=== PATIENT | female | born 1990 | race Caucasian/White ===

== ENCOUNTER → 2016-11-28 | Day surgery (SDC) | payer BC ==
[2016-11-12 13:01] LABS: HEMATOCRIT 38.9 % (37-47); MEAN CELL VOLUME 88.4 fL (80-100); MEAN CORPUSCULAR HEMOGLOBIN 30.9 pg (25-34); MEAN PLATELET VOLUME 10.9 fL (7.4-10.4); PLATELET COUNT 301 K/uL (130-400); WHITE BLOOD COUNT 3.56 K/uL (4.8-10.8)
[2016-11-12 13:16] LABS: PROTHROMBIN TIME (PATIENT) 11.2 SECONDS (9.0-12.0)
[2016-11-17 09:02] VITALS: Ht 172.7 cm; Wt 73.6 kg
[~2016-11-28] VITALS: Ht 172.7 cm; Wt 73.6 kg
[~2016-11-28] MED LIST: ATROPINE SULFATE 0.1 MG/ML 5ML SYR IV PRN; BUPIVACAINE 0.5 % 5 MG/1 ML MPF 30ML VIAL ONE; CEFAZOLIN 1000MG/55 ML D5W IV SCH; DEXAMETHASONE SOD INJ 4 MG/ML VIAL ONE; EpHEDrine SULFATE INJ 50 MG/ML AMP IV PRN; FENTANYL CITRATE INJ 50 MCG/1 ML 2 ML VIAL ONE; FLUMAZENIL 0.1 MG/1 ML 10 ML VIAL IV PRN; HYDROCODONE/ACETAMOPHEN 5/325MG TAB PO PRN; LACTATED RINGER'S 1000ML 1,000 ML IV SCH; LIDOCAINE HCL 1% 20 ML VIAL ONE; LIDOCAINE HCL 2% 2 ML VIAL (20MG/ML) ONE; METOCLOPRAMIDE HCL INJ 5 MG/ML 2 ML VIAL IV PRN; MIDAZOLAM HCL 1 MG/ML 2ML VIAL ONE; NALOXONE HCL 0.4 MG/1 ML VIAL/CARP IV PRN; ONDANSETRON INJ 2 MG/ML 2 ML VIAL IV PRN; ONDANSETRON INJ 2 MG/ML 2 ML VIAL ONE; OXYCODONE/ACETAMINOPHEN 5-325 TAB PO PRN; PROMETHAZINE HCL INJ 12.5 MG in SODIUM CHLORIDE 0.9% 50ML 50 ML IV PRN; PROPOFOL IV EMULSION 10 MG/ML 20 ML VIAL IV ONE; SODIUM CHLORIDE 0.9% 1000ML 1,000 ML IV SCH; [UNRECOGNIZED DRUG - REMARK] PO
--- NOTE | 2016-11-28 06:50 | History & Physical Bridge - [place] ---
H&P Re-Evaluation Bridge Note: I have examined the patient, reviewed the History & Physical and in the interval since the performance of the History & Physical I have noted the following changes of clinical significance: No changes noted
[2016-11-28 09:01] VITALS: TEMP 36.3
--- NOTE | 2016-11-28 09:40 | Discharge Instructions-SurgCtr ---
Discharge Instructions Date of Service Nov 28, 2016. Visit Reason for Visit: Hallux Valgus, Pain Left Foot;Pre Op Discharge Discharge Diagnosis / Problem: left hallux rigidus Discharge Goals Goal(s): Decrease discomfort, Improve function Activity Recommendations Activity Limitations: per Instructions/Follow-up section (non weightbearing left foot) Lifting Limitations: no more than 5 pounds Exercise/Sports Limitations: none May Resume Sexual Activity: after two weeks Shower/Bathe: keep incision dry Driving or Machine Use: no driving Weightbearing Status: Left non-weightbearing Anesthesia . Post Anesthesia Instructions: If you have had General Anesthesia or IV Sedation: * Do not drive today. * Resume driving when surgeon permits. * Do not make important decisions or sign legal documents today. * Call surgeon for: 1. Temperature elevations greater than 101 degrees F. 2. Uncontrollable pain. 3. Excessive bleeding. 4. Persistent nausea and vomiting. 5. Medication intolerance (nausea, vomiting or rash). * For nausea and vomiting use only clear liquids such as: tea, soda, bouillon until nausea subsides, then gradually increase diet as tolerated. * If you have any concerns or questions, call your surgeon's office. If physician is unavailable and it is an emergency, call 911 or go to the nearest emergency room. . Diet Recommendations Home Diet: no limitations Fluid Restriction: None Procedures Procedures Performed: Left Foot Surgical Correction Bunion Deformity Pending Studies Studies pending at discharge: no Medical Emergencies . Who to Call and When: Medical Emergencies: If at any time you feel your situation is an emergency, please call 911 immediately. . Non-Emergent Contact Non-Emergency issues call your: Primary Care Provider Call Non-Emergent contact if: temperature is above 101.5 . . "Provider Documentation" section prepared by Jennifer Mirza. [place] Drug Monitoring Program Drug Monitoring Findings: Call [phone]
--- NOTE | 2016-11-28 09:41 | [facility] Post Operative Brief Note ---
Immediate Operative Summary Operative Date Nov 28, 2016. Pre-Operative Diagnosis Left Foot Pain, Hallux Valgus Post-Operative Diagnosis Same Procedure(s) Performed Left Foot Surgical Correction Bunion Deformity Surgeon Dr Danielson Client Care Specialist Surgeon(s) None Estimated Blood Loss 0ML Findings bone left foot Specimens A: Left Foot Bone Drains none Anesthesia mac with local Complication(s) None Disposition Recovery Room / PACU
--- NOTE | 2016-11-28 09:43 | Anesthesia Progress Nt - [facility] ---
Anesthesia Post Op Note Date & Time Nov 28, 2016 at 09:41 Vital Signs Pain Intensity: 1 Vital Signs Past 12 Hours Date Time Temp Pulse Resp B/P Pulse Ox O2 Delivery O2 Flow Rate FiO2 11/28/16 09:14 59 20 101/63 100 Room Air 11/28/16 09:01 36.3 68 16 96/57 97 Room Air 11/28/16 06:30 36.7 86 16 111/58 99 Room Air Notes Mental Status: alert / awake / arousable, participated in evaluation Pt Amnestic to Procedure: Yes Nausea / Vomiting: adequately controlled Pain: adequately controlled Airway Patency, RR, SpO2: stable & adequate BP & HR: stable & adequate Hydration State: stable & adequate Anesthetic Complications: no major complications apparent
[2016-11-28 09:48] VITALS: BP 101/68; PULSE 55; O2SAT 100
--- NOTE | 2016-11-28 11:44 | OPERATIVE REPORT ---
DATE OF OPERATION: 11/28/2016 PREOPERATIVE DIAGNOSIS: Painful left foot hallux rigidus/bunion/arthritis. POSTOPERATIVE DIAGNOSIS: Same. PROCEDURES: Left foot bunion correction or decompression osteotomy with fixation. SURGEON: Jennifer Danielson DPM. BLOOD LOSS: 1 mL. HEMOSTASIS: Pneumatic ankle tourniquet at 250 mmHg. ANESTHESIA: Local IV sedation. DESCRIPTION OF PROCEDURE: The patient was brought to the operating room and placed in the supine position. The left lower extremity was prepped and draped in the usual sterile manner. A 1:1 mix of 1% lidocaine plain and 0.5% Marcaine was utilized to anesthetize the left foot at the first metatarsophalangeal joint. At this point, a timeout was taken, anesthesia was induced and the procedure began. A dorsal linear incision was made just medial to the long extensor tendon. Dissection was carried through the skin and subcutaneous tissues to the level of the joint capsule. At this point, the joint capsule was then incised in line with the original incision and dissected both medially and laterally to expose the joint. At this point, there was a moderate amount of dorsal exostosis present at the first metatarsal head as well as medial eminence or medial exostosis present. Both of these were removed utilizing the sagittal saw and passed off the table and sent to pathology for permanent specimen. Next, the decompression osteotomy was performed. The plantar cut was made first followed by the dorsal cut in which a small about 1 mm portion of bone was removed and this was removed to allow the distal fragment to both plantarflex and to allow more joint space, which was part of the issue and this patient's problem which was her having her hallux rigidus and not being able to fully dorsiflex her toe with ambulation. So at this point, the small portion of bone was removed from the dorsal aspect of the first metatarsal and passed off the table and sent to pathology for permanent specimen. The distal capital fragment was then translocated laterally to realign the joint. A K-wire was placed from proximal to distal across the osteotomy and position checked with intraoperative fluoroscopy and found to be appropriate. Next, a 3.0 x 20 mm cannulated Arthrex screw was applied across the osteotomy and again position checked with intraoperative fluoroscopy and found to be appropriate. The toe was taken through range of motion and much improvement in the dorsiflexion was noted with removal of the dorsal exostosis and the osteotomy performed. The area was flushed with copious amounts of normal saline and the K-wire that acted as cannulated fixation was removed. The screw was tightened down to the bone and remained flush in place. This was tightened to 2 finger tightness. Again, the area was flushed with copious amounts of normal saline. At this point, any remaining redundant bone was burred utilizing the bur and making sure all areas were flush and appropriate for joint motion and ambulation. Next, the area was flushed again. The capsular tissues were closed with 3-0 Vicryl. The subcutaneous tissues were closed with 3-0 Vicryl and the skin was closed with 3-0 nylon in a combination of horizontal mattress and simple interrupted sutures. At this point, compressive and corrective dressings were applied. The tourniquet was deflated. A posterior splint was applied. The patient was taken to recovery room with all vital signs stable and intact. She will follow up with me in the office in 1 week. She was made aware of all risks and benefits of the procedure and she did sign consent for the procedure. She did try conservative treatments including injections, wider shoes and orthotics which at first somewhat improved it but however the pain would return and the patient continued to have inability to wear shoe gear and that is why she opted for surgical correction at this time. I attest to the content of the Intraoperative Record and any orders documented therein. Any exceptions are noted below. BRENDAN
--- NOTE | 2016-12-01 07:31 | DIAGNOSTIC IMAGING REPORT ---
INTRAOPERATIVE RADIOGRAPHS CLINICAL HISTORY: Hallux valgus repair. Fluoroscopy time: 16 seconds. FINDINGS: 2 spot fluoroscopic views of the left forefoot are presented. There is evidence of osteotomy involving the distal first metatarsal with a cortical lag screw in place. Near-anatomic alignment is preserved at the first metatarsophalangeal joint. Mild overlying soft tissue edema is noted. IMPRESSION: Intraoperative images from left bunionectomy as above. Electronically signed by: Nate Fish M.D. 11/28/2016 9:55 AM Dictated Date/Time: 11/28/2016 9:54 AM
== END | disposition home or self-care (01) ==
LOC: X.SURG 06:13
PROVIDERS: ATTEND Podiatrist
DX: M20.12 Hallux valgus (acquired), left foot (principal); M20.21 Hallux rigidus, right foot; E66.3 Overweight; Z82.49 Family history of ischemic heart disease and other diseases of the circulatory system

== ENCOUNTER → 2017-01-19 | Outpatient (CLI) | payer BC ==
[~2017-01-19] MED LIST changes: -ATROPINE SULFATE 0.1 MG/ML 5ML SYR IV PRN; -BUPIVACAINE 0.5 % 5 MG/1 ML MPF 30ML VIAL ONE; -CEFAZOLIN 1000MG/55 ML D5W IV SCH; -DEXAMETHASONE SOD INJ 4 MG/ML VIAL ONE; -EpHEDrine SULFATE INJ 50 MG/ML AMP IV PRN; -FENTANYL CITRATE INJ 50 MCG/1 ML 2 ML VIAL ONE; -FLUMAZENIL 0.1 MG/1 ML 10 ML VIAL IV PRN; -HYDROCODONE/ACETAMOPHEN 5/325MG TAB PO PRN; -LACTATED RINGER'S 1000ML 1,000 ML IV SCH; -LIDOCAINE HCL 1% 20 ML VIAL ONE; -LIDOCAINE HCL 2% 2 ML VIAL (20MG/ML) ONE; -METOCLOPRAMIDE HCL INJ 5 MG/ML 2 ML VIAL IV PRN; -MIDAZOLAM HCL 1 MG/ML 2ML VIAL ONE; -NALOXONE HCL 0.4 MG/1 ML VIAL/CARP IV PRN; -ONDANSETRON INJ 2 MG/ML 2 ML VIAL IV PRN; -ONDANSETRON INJ 2 MG/ML 2 ML VIAL ONE; -OXYCODONE/ACETAMINOPHEN 5-325 TAB PO PRN; -PROMETHAZINE HCL INJ 12.5 MG in SODIUM CHLORIDE 0.9% 50ML 50 ML IV PRN; -PROPOFOL IV EMULSION 10 MG/ML 20 ML VIAL IV ONE; -SODIUM CHLORIDE 0.9% 1000ML 1,000 ML IV SCH
== END | disposition home or self-care (01) ==
LOC: C.LABSPEC 15:10
PROVIDERS: ATTEND Podiatrist
DX: Z48.89 Encounter for other specified surgical aftercare (principal)

== ENCOUNTER → 2017-01-30 | Outpatient (CLI) | payer BC ==
[2017-01-30 19:23] LABS: THYROID STIMULATING HORMONE 2.1 uIu/ml (0.300-4.500)
== END | disposition home or self-care (01) ==
LOC: C.LAB 17:09
PROVIDERS: ATTEND Physician Assistant
DX: R79.89 Other specified abnormal findings of blood chemistry (principal)

== ENCOUNTER → 2017-02-02 | Outpatient (CLI) | payer BC | END | disposition home or self-care (01) | LOC: C.PAPS 14:09 | PROVIDERS: ATTEND Obstetrics & Gynecology | DX: Z01.419 Encounter for gynecological examination (general) (routine) without abnormal findings (principal) ==

== ENCOUNTER → 2017-03-23 | Outpatient (CLI) | payer BC ==
--- NOTE | 2017-03-23 12:09 | DIAGNOSTIC IMAGING REPORT ---
THYROID ULTRASOUND CLINICAL HISTORY: Thyroid antibody positive. Thyroid nodule. COMPARISON STUDY: Thyroid ultrasound May 01, 2016. TECHNIQUE: Sonography of the thyroid gland was performed. FINDINGS: The right thyroid lobe measures 5.3 x 2 x 1.6 cm and the left lobe measures 5.2 x 1.5 x 1.8 cm. Gland heterogeneity has likely increased exam of May 01, 2016. A few prominent central compartment lymph nodes are noted, including a 1.1 x 1.4 x 0.6 cm lymph node inferior to the right thyroid lobe. This was shown on prior exam. A 0.9 x 0.6 x 0.7 cm hypoechoic left lobe thyroid nodule is similar to exam of May 01, 2016 when allowing for measurement variability. IMPRESSION: 1. Mildly enlarged, heterogeneous thyroid gland. Gland heterogeneity has increased since exam of July 01, 2016. A few paracentral compartment lymph nodes. The findings suggest chronic thyroiditis. 2. 0.9 cm left lobe thyroid nodule which is either stable or minimally increased in size since exam of May 01, 2016. This does not meet criteria for biopsy. A follow-up ultrasound in one year is recommended. Electronically signed by: Jose Antonio Rodriguez M.D. 03/23/2017 12:08 PM Dictated Date/Time: 03/23/2017 12:04 PM
== END | disposition home or self-care (01) ==
LOC: C.ULTR 11:00
PROVIDERS: ATTEND Physician Assistant
DX: R94.6 Abnormal results of thyroid function studies (principal); R76.0 Raised antibody titer; E04.1 Nontoxic single thyroid nodule

== ENCOUNTER → 2017-04-21 | Outpatient (CLI) | payer BC ==
[2017-04-21 19:00] LABS: THYROID STIMULATING HORMONE 2.3 uIu/ml (0.300-4.500)
== END | disposition home or self-care (01) ==
LOC: C.LAB 18:12
PROVIDERS: ATTEND Physician Assistant
DX: R79.89 Other specified abnormal findings of blood chemistry (principal); R76.0 Raised antibody titer; R94.6 Abnormal results of thyroid function studies

== ENCOUNTER → 2017-04-29 | Outpatient (CLI) | payer BC | END | disposition home or self-care (01) | LOC: C.LAB1850 10:17 | PROVIDERS: ATTEND Physician Assistant | DX: E66.3 Overweight (principal) ==

== ENCOUNTER → 2017-07-06 | Outpatient (CLI) | payer BC ==
[2017-07-06 12:17] LABS: BASO % 0.2 %; BASO ABS # 0.01 K/uL (0-0.2); COMPLETE YES; EOS % 0.9 %; HEMATOCRIT 37.6 % (37-47); IG% 0.2 %; LYMPH % 29.6 %; LYMPH ABS # 1.29 K/uL (1.2-3.4); MEAN CELL VOLUME 89.5 fL (80-100); MEAN CORPUSCULAR HEMOGLOBIN 30.7 pg (25-34); MEAN CORPUSCULAR HGB CONC 34.3 g/dl (32-36); MEAN PLATELET VOLUME 11.3 fL (7.4-10.4); MONO % 6.9 %; NEUT % 62.2 %; PLATELET COUNT 265 K/uL (130-400); WHITE BLOOD COUNT 4.36 K/uL (4.8-10.8)
[2017-07-06 12:30] LABS: THYROID STIMULATING HORMONE 0.778 uIu/ml (0.300-4.500)
[2017-07-06 15:00] LABS: URINE APPEARANCE CLEAR (CLEAR); URINE BILIRUBIN NEG (NEG); URINE COLOR YELLOW; URINE NITRITE NEG (NEG); URINE PH 6.5 (4.5-7.5); URINE SPECIFIC GRAVITY 1.016 (1.000-1.030); UROBILINOGEN NEG (NEG)
[2017-07-06 15:09] LABS: MANUAL MICROSCOPIC REQUIRED? NO; REVIEW REQ? NO
[2017-07-09 01:47] LABS: CHLAMYDIA TRACH RNA*** NOT DETECTED (NOT DETECTED); GC (NEIS GONORRHOEAE)RNA** NOT DETECTED (NOT DETECTED)
== END | disposition home or self-care (01) ==
LOC: C.LAB1850 10:27
PROVIDERS: ATTEND Obstetrics & Gynecology
DX: O99.281 Endocrine, nutritional and metabolic diseases complicating pregnancy, first trimester (principal); R94.6 Abnormal results of thyroid function studies

== ENCOUNTER → 2017-08-12 | Outpatient (CLI) | payer BC | END | disposition home or self-care (01) | LOC: C.PATHSPEC 10:20 | PROVIDERS: ATTEND Plastic Surgery | DX: K13.0 Diseases of lips (principal); D23.0 Other benign neoplasm of skin of lip; R23.4 Changes in skin texture ==

== ENCOUNTER → 2017-08-18 | Outpatient (CLI) | payer BC ==
[2017-08-18 18:00] LABS: GTGD 50 Grams
== END | disposition home or self-care (01) ==
LOC: C.LAB 14:22
PROVIDERS: ATTEND Obstetrics & Gynecology
DX: Z34.82 Encounter for supervision of other normal pregnancy, second trimester (principal)

== ENCOUNTER → 2017-09-16 | Outpatient (CLI) | payer BC ==
[~2017-09-16] MED LIST changes: +LEVO75TA PO; +PRENTAB26 PO
== END | disposition home or self-care (01) ==
LOC: C.LAB1850 16:41
PROVIDERS: ATTEND Physician Assistant
DX: R94.6 Abnormal results of thyroid function studies (principal)

== ENCOUNTER → 2017-11-09 | Outpatient (CLI) | payer BC ==
[~2017-11-09] MED LIST changes: -LEVO75TA PO; -PRENTAB26 PO
[2017-11-09 11:59] LABS: HEMATOCRIT 31.9 % (37-47); HEMOGLOBIN 10.6 g/dL (12.0-16.0)
== END | disposition home or self-care (01) ==
LOC: C.LAB 11:22
PROVIDERS: ATTEND Obstetrics & Gynecology
DX: Z34.83 Encounter for supervision of other normal pregnancy, third trimester (principal)

== ENCOUNTER → 2017-11-27 | Outpatient (CLI) | payer BC, OTHER | END | disposition home or self-care (01) | LOC: C.LAB1850 10:53 | PROVIDERS: ATTEND Physician Assistant | DX: O99.283 Endocrine, nutritional and metabolic diseases complicating pregnancy, third trimester (principal); E03.9 Hypothyroidism, unspecified; Z3A.00 Weeks of gestation of pregnancy not specified ==

== ENCOUNTER → 2018-01-07 | Outpatient (CLI) | payer OTHER | END | disposition home or self-care (01) | LOC: C.LABSPEC 15:53 | PROVIDERS: ATTEND Obstetrics & Gynecology | DX: Z34.83 Encounter for supervision of other normal pregnancy, third trimester (principal) ==

== ENCOUNTER 2022-09-05 02:00 | Inpatient (IN) ==
[2022-09-05] MEDS ORDERED: LIDOCAINE 1% LOCAL 20 ML VIAL INFIL PRN (02:14)
[2022-09-05] MEDS ORDERED: OXYTOCIN 30 UNITS/500 ML BAG IV PRN ×2 (02:14→07:33)
[2022-09-05 02:47] LABS: Hematocrit (blood only) 34.6 % (34.1-44.9); Hemoglobin 11.8 g/dl (12.0-16.0); Mean Corpuscular Hemoglobin 30.7 pg (25.0-34.0); Mean Corpuscular Hgb Conc 34.1 g/dL (32.0-36.0); Mean Corpuscular Volume 90.1 fL (80.0-100.0); Mean Platelet Volume 10.3 fL (9.4-12.3); Platelet Count 298 K/uL (130-400); RDW Coefficient of Variation 13.4 % (11.5-14.5); RDW Standard Deviation 43.8 fL (36.4-46.3); Red Blood Count 3.84 M/uL (3.93-5.22); White Blood Count 7.12 K/ul (4.8-10.8)
[2022-09-05] MEDS: LACTATED RINGER'S 1,000 ML IV PRN ×2 (02:50→05:57)
[2022-09-05] MEDS ORDERED: SODIUM CHLORIDE 0.9% INJ 10 ML VIAL ONE (02:53)
[2022-09-05] MEDS ORDERED: ePHEDrine sulfate 50 MG/ML AMP ONE (02:53)
[2022-09-05] MEDS ORDERED: fentaNYL citrate 100 MCG/2 ML VIAL ONE (02:53)
[2022-09-05] MEDS ORDERED: BUPIVACAINE 0.25% 30 ML VIAL ONE (02:53)
[2022-09-05] MEDS ORDERED: LIDOCAINE 2%/EPINEPHRINE 1:200,000 20 ML SDV ONE (02:53)
[2022-09-05] MEDS ORDERED: fentaNYL 2MCG/ML ROPIVACAINE 1.25MG/ML 100 ML BAG EPI ONE (02:54)
--- NOTE | 2022-09-05 03:39 | Anesthesiology Consultation ---
Date of Service September 05, 2022 Assessment & Plan Chart Review Chart Review: Acceptable Risk for Labor Epidural Consults Requested none History Height/Weight Height: 5 ft 8 in Weight: 101.151 kg Allergies Allergy/AdvReac Type Severity Reaction Status Date / Time benzoin Allergy Unknown RASH Verified 09/02/22 11:32 minocycline Allergy Unknown GI UPSET Verified 09/02/22 11:32 AND METAL TASTE IN MOUTH Medications Home Medications Medication Instructions Recorded Confirmed Last Taken prenat.vits,reema,ndk-qjca-ulbng 1 tab PO DAILY 01/20/22 09/05/22 Unknown breast pump #1 ea 06/19/22 09/02/22 Unknown levothyroxine 112 mcg tablet 112 mcg PO .8xweek 90 days #96 tabs 08/14/22 09/05/22 Unknown Active Medications Generic Name Dose Route Start Last Admin Trade Name Freq PRN Reason Stop Dose Admin Lactated Ringer's 1,000 mls @ 125 mls/hr 09/05/22 02:14 09/05/22 03:29 Lr IV 09/07/22 02:13 125 mls/hr .Q8H PRN Infusion L&D Protocol Protocol Past Medical History Medical History (Updated 03/24/22 @ 12:24 by Kalyani Green) Chronic tonsillitis History of positive PPD 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 Obesity thyroiditis Varicella vaccination Past Family History Family History Grandmother (Maternal) Breast cancer Mother Endometriosis Father Hypertension Diabetes Heart disease Grandfather (Paternal) Diabetes Denies family history of Ovarian cancer Prostate cancer Myocardial infarction Lung cancer Colorectal cancer Stroke Past Surgical History Surgical History H/O oral surgery S/P bunionectomy Social History Smoking Status: Never smoker Hx Alcohol Use: No Hx Substance Use: No Physical Exam Vital Signs Last Vital Signs Temp 36.6 C 09/05/22 02:17 Pulse 90 09/05/22 03:35 Resp 18 09/05/22 02:17 BP 118/61 09/05/22 03:35 Pulse Ox 98 09/05/22 03:33 Testing Laboratory Results 09/05/22 02:37
[2022-09-05] MEDS ORDERED: diphenhydrAMINE 50 MG/ML VIAL IV PRN (03:40)
[2022-09-05] MEDS ORDERED: NALBUPHINE HCL INJ 10 MG/ML AMP IV PRN (03:40)
[2022-09-05] MEDS ORDERED: fentaNYL 2MCG/ML ROPIVACAINE 1.25MG/ML 100 ML BAG EPI PRN (03:40)
[2022-09-05] MEDS ORDERED: ePHEDrine sulfate 50 MG/ML AMP IV PRN (03:40)
[2022-09-05] MEDS ORDERED: NALOXONE HCL 1 MG in SODIUM CHLORIDE 0.9% 1000ML 1,000 ML IV PRN (03:40)
[2022-09-05] MEDS ORDERED: NALOXONE HCL 0.4 MG/1 ML VIAL/CARP IV PRN (03:40)
--- NOTE | 2022-09-05 06:23 | Delivery Summary ---
Vaginal Delivery Summary Date of Service September 05, 2022 Vaginal Delivery Summary Spontaneous vaginal delivery the patient presented in active labor with rupture of membranes requested epidural and then once reached fully dilated she pushed over 1 contraction delivering baby in occiput anterior position there was no nuchal cord fluid was clear gentle traction easy delivered no excessive force live vigorous female infant cord clamped and cut cord blood obtained placenta removed with gentle traction IV Pitocin started uterine tone improved minimal bleeding there was no tearing on inspection sponge and instrument counts correct
[2022-09-05] MEDS ORDERED: ACETAMINOPHEN 325 MG TAB PO PRN (07:33)
[2022-09-05] MEDS ORDERED: BENZOCAINE 20% AER SPR 82.5 GM CAN EXT PRN (07:33)
[2022-09-05] MEDS ORDERED: bisacodyL 10 MG SUPP PR PRN (07:33)
[2022-09-05] MEDS ORDERED: oxyCODONE/ACETAMINOPHEN 5mg/325mg TAB PO PRN (07:33)
[2022-09-05] MEDS ORDERED: DIPHTHERIA/TETANUS/PERTUSSIS 0.5 ML SYR/VIAL IM ONE (07:33)
[2022-09-05] MEDS ORDERED: HYDROCORTISONE ACETATE 25 MG SUPP PR PRN (07:33)
--- NOTE | 2022-09-05 08:29 | Anesthesia Procedure Note ---
Date of Service September 05, 2022 Anesthesia Post Epidural Note Vital Signs Vital Signs: Temp Pulse Resp BP Pulse Ox 36.8 C 87 18 108/60 98 09/05/22 05:28 09/05/22 08:27 09/05/22 06:50 09/05/22 08:27 09/05/22 06:18 Notes Mental Status: alert / awake / arousable Nausea / Vomiting: adequately controlled Pain: adequately controlled Airway Patency, RR, SpO2: stable & adequate BP & HR: stable & adequate Hydration State: stable & adequate Neuraxial Anesthesia: was administered and sensory block is resolving Anesthetic Complications: no major complications apparent and Pt Satisfied with anesthetic care Epidural: Removed without complications and With tip intact
[2022-09-05] MEDS: PRENATAL VITAMIN 1 TAB PO SCH (09:34)
[2022-09-05] MEDS: DOCUSATE SODIUM 100 MG CAP PO SCH ×2 (09:34→20:06)
[2022-09-05] MEDS: LEVOTHYROXINE SODIUM 112 MCG TABLET PO SCH (10:08)
[2022-09-05] MEDS: IBUPROFEN 600 MG TAB PO PRN (14:41)
[2022-09-06] MEDS: IBUPROFEN 600 MG TAB PO PRN (00:35)
[2022-09-06] MEDS: LEVOTHYROXINE SODIUM 112 MCG TABLET PO SCH (05:56)
[2022-09-06 07:54] LABS: Hematocrit (blood only) 34.1 % (34.1-44.9); Hemoglobin 11.3 g/dl (12.0-16.0); Mean Corpuscular Hemoglobin 30.6 pg (25.0-34.0); Mean Corpuscular Hgb Conc 33.1 g/dL (32.0-36.0); Mean Corpuscular Volume 92.4 fL (80.0-100.0); Mean Platelet Volume 10.3 fL (9.4-12.3); Platelet Count 252 K/uL (130-400); RDW Coefficient of Variation 13.7 % (11.5-14.5); RDW Standard Deviation 46.5 fL (36.4-46.3); Red Blood Count 3.69 M/uL (3.93-5.22); White Blood Count 6.93 K/ul (4.8-10.8)
[2022-09-06] MEDS: PRENATAL VITAMIN 1 TAB PO SCH (08:37)
[2022-09-06] MEDS: DOCUSATE SODIUM 100 MG CAP PO SCH (08:37)
[2022-09-06] MEDS ORDERED: bisacodyL 5 MG TABEC PO SCH (20:00)
[2022-09-07] MEDS ORDERED: LEVOTHYROXINE SODIUM 112 MCG TABLET PO SCH (06:30)
== END 2022-09-06 11:05 | disposition home or self-care (01) | DRG 807 ==
LOC: OPB 02:00 → 4S1 02:01 → 4E2 09:26